=== PATIENT | female | born 1995 | race Caucasian/White ===

== ENCOUNTER 2016-10-04 20:25 | Emergency (ER) | payer OTHER ==
[2016-10-04 20:43] VITALS: BP 114/65; PULSE 103; RESP 16; TEMP 98.1; O2SAT 98
--- NOTE | 2016-10-04 22:17 | UCPHY ---
H & P Time Seen by Provider: 10/04/16 21:58 Patient Type: Established HPI/ROS: CHIEF COMPLAINT: congestion, cough HISTORY OF PRESENT ILLNESS: Patient is a 21-year-old female who presents to the emergency department with complaints of congestion and cough. The patient has had previous pneumonia x2. Patient states that she has had a rough week. She just returned from her grandmother's . She has had 3 weeks of a stuffy nose in 8 days of cough. This is not quite as severe as her previous pneumonia. Her cough is nonproductive. She has no significant shortness of breath. She denies chest pain. Subjective fever with no chills. No leg pain or swelling. REVIEW OF SYSTEMS: My complete review of systems is negative except as mentioned in the HPI. Past Medical/Surgical History: Includes pneumonia Past surgical history: Denies Social history: The patient does not smoke. Smoking Status: Never smoked Physical Exam: Vitals noted GENERAL: Well-appearing, in no acute distress, alert. HEENT: Eyes normal to inspection, normal pharynx, no signs of dehydration. Normal TMs bilaterally. NECK: No thyromegaly, no lymphadenopathy, supple. RESPIRATORY: Clear to auscultation bilaterally, no rales, rhonchi or wheezing. CVS: Regular rate and rhythm, no rubs, murmurs, or gallops. ABDOMEN: Soft, nontender, nondistended, no organomegaly. BACK: Normal to inspection, no CVA tenderness. SKIN: Normal color, no rash, warm, dry. No pallor. EXTREMITIES: No pedal edema, no calf tenderness, no Homans sign or cords, no joint swelling. NEURO/PSYCH: Alert and oriented, normal mood and affect Constitutional: Initial Vital Signs Temperature (C) 36.7 C 10/04/16 20:40 Heart Rate 103 H 10/04/16 20:40 Respiratory Rate 16 10/04/16 20:40 Blood Pressure 114/65 10/04/16 20:40 O2 Sat (%) 98 10/04/16 20:40 O2 Delivery Mode Room Air Allergies/Adverse Reactions: No Known Allergies Allergy (Verified 10/21/15 19:19) Home Medications: Medication Instructions Recorded Adderall 10 MG (RX) 05/05/15 Sertraline HCl [Zoloft 20mg/ml 05/05/15 oral liquid] Azithromycin 250 mg PO DAILY #4 tablet 10/04/16 Hydrocodone/APAP 5/325 [[place] 1 - 2 tab PO Q4 #9 tab 10/04/16 5/325 (RX)] Medical Decision Making ED Course/Re-evaluation: I discussed possible etiologies with the patient. I answered all her questions. Based on the fact the patient has had previous pneumonia x2 she will be treated with azithromycin. She was given the 1st dose of azithromycin in the emergency department. She is given a prescription on discharge. She was also given [place] for cough suppressant. Patient was given warnings prior to leaving. She will return with worsening symptoms. Differential Diagnosis: My differential includes but is not limited to bronchitis, pneumonia, bacteremia , sepsis, dehydration, pharyngitis Departure - Departure Disposition: Home, Routine, Self-Care Clinical Impression: Bronchitis Condition: Good Instructions: Acute Bronchitis (ED) Additional Instructions: Return with increasing cough, shortness of breath, or any other concerns. Take your entire course of antibiotics. Referrals: Charmaine Mcnamara MD [Medical Doctor] - 5-7 days, call for appt. Prescriptions: Azithromycin 250 mg PO DAILY #4 tablet Hydrocodone/APAP 5/325 [[place] 5/325 (RX)] 1 - 2 tab PO Q4 #9 tab - PQRS PQRS Measurement: NA
[2016-10-04] MEDS ORDERED: AZITHROMYCIN 250 MG TAB PO ONE (22:18)
== END 2016-10-04 22:41 | disposition home or self-care (01) ==
LOC: CED 20:25
DX: J40 Bronchitis, not specified as acute or chronic (principal); Z87.01 Personal history of pneumonia (recurrent)
CPT/HCPCS: 99214-PO; G0463-PO

== ENCOUNTER 2017-03-08 20:22 | Emergency (ER) | payer OTHER ==
--- NOTE | 2017-03-08 20:41 | EDPHY ---
H & P Time Seen by Provider: 03/08/17 20:26 HPI/ROS: This patient was rollerblading last night and she fell while trying to stop at moderate speed landing on her coccyx and buttock with pain since then that is moderate baseline becomes quite sharp with certain movements to the area just left of midline distal sacrum/coccyx region. She has no other injuries from the fall. She took ibuprofen prior to arrival with partial relief. She had some sleep difficulties last night due to the pain but still was able to sleep. ROS: No constitutional symptoms HEENT: She did not strike her head does not have a headache Neck: Chronic mild neck muscular pain but no worsening since the fall. No midline neck or back pain. Pulmonary: No chest wall injury or shortness of breath Cardiovascular: No complaints Integumentary: No significant abrasions or lacerations Neuro: No numbness tingling or other complaints. 7 point ROS is otherwise negative Past Medical/Surgical History: Otherwise healthy Smoking Status: Never smoked Physical Exam: Physical Exam Vital signs are normal. General: Pleasant 21-year-old female No acute distress HEENT: Atraumatic. Eyes: Pupils equal and react to light. Extraocular motions are intact. Lungs: No respiratory distress. Cardiac: Brisk capillary refill is intact throughout. Pulses are 2+ and symmetric in the affected extremity. Chest wall is nontender Abdomen: Soft, nontender Pelvis: No increase in pain with gentle pressure to the anterior superior iliac crest with the patient supine also no significant increase in pain with anterior pressure to the pubic symphysis. Back: She has tenderness just to the left side of the sacrum. No gross deformities are present. Skin: No rash or pallor. No full-thickness abrasions or lacerations Neuro: Alert and oriented x3 with no sensorimotor deficits. Initial differential diagnosis: Sacral contusion versus fracture versus coccyx fracture/contusion Constitutional: Initial Vital Signs Temperature (C) 37.0 C 03/08/17 20:31 Heart Rate 105 H 03/08/17 20:31 Respiratory Rate 16 03/08/17 20:31 Blood Pressure 110/72 03/08/17 20:31 O2 Sat (%) 96 03/08/17 20:31 O2 Delivery Mode Room Air Allergies/Adverse Reactions: No Known Allergies Allergy (Verified 03/08/17 20:27) Home Medications: Medication Instructions Recorded Adderall 10 MG (RX) 05/05/15 Sertraline HCl [Zoloft 20mg/ml 05/05/15 oral liquid] MDM/Departure - MDM Imaging Results: Imaging Impressions Sacrum and Coccyx X-Ray 03/08/17 20:32 Impression: Negative. I telephoned results to Dr. Jaguar Pitts at 2101 hours. Radiologist read this film primarily I also reviewed it. Imaging: Discussed imaging studies w/ director call center sales Radiologist ED Course/Re-evaluation: I counseled this patient regarding sacral contusion. Discussion: No clinical evidence of radiculopathy, pelvic fraction or other concerning findings in this patient with sacral contusion. - Depart Disposition: Home, Routine, Self-Care Clinical Impression: Sacral contusion Qualifiers: Encounter type: initial encounter Qualified Code(s): S30.0XXA - Contusion of lower back and pelvis, initial encounter Condition: Good Instructions: Contusion in Adults (ED) Additional Instructions: Diagnosis: Sacral contusion Plan: Go to the pharmacy improved this inflatable donut to sit on if sitting causes the discomfort. Continue [id number] mg per 6 hours as needed Use Tylenol in addition if needed for pain control. Your symptoms should improve significantly over the next 3-7 days. Referrals: NONE *PRIMARY CARE P,. [Unknown] - As per Instructions
[2017-03-08 20:43] VITALS: RESP 16; TEMP 98.6; O2SAT 96
[2017-03-08] MEDS ORDERED: LIDOCAINE 2% JELLY 5 ML TUBE TP ONE (20:49)
[2017-03-08] MEDS ORDERED: LET GEL TOPICAL 1 EA SYR TP ONE (20:50)
[2017-03-08 21:15] VITALS: BP 119/73; PULSE 98
== END 2017-03-08 21:10 | disposition home or self-care (01) ==
LOC: CED 20:22
DX: S30.0XXA Contusion of lower back and pelvis, initial encounter (principal); W18.39XA Other fall on same level, initial encounter; Y99.8 Other external cause status; Y93.89 Activity, other specified
CPT/HCPCS: 72220-PO